=== PATIENT | male | born 1930 | race American Indian/Alaskan Native ===

== ENCOUNTER 2017-02-16 11:45 | Outpatient (CLI) | payer MEDICARE, OTHER ==
--- NOTE | 2017-02-16 13:13 | Cat Scan Report ---
Cranial CT without contrast. History: Altered mental status. Findings: There is no evidence of acute hemorrhage or infarct. The posterior fossa is normal. Age-appropriate senescent changes are present. There are no masses or extra-axial collections. The calvarium is normal. Impression: No acute findings.
== END 2017-02-16 11:46 | disposition home or self-care (01) ==
LOC: CT 11:45
PROVIDERS: ATTEND Psychiatry & Neurology Neurology
DX: R41.82 Altered mental status, unspecified (principal)
CPT/HCPCS: 70450